=== PATIENT | female | born 1940 | race Caucasian/White ===

== ENCOUNTER 2017-11-09 09:09 | Observation (INO) | payer OTHER, MEDICARE ==
[~2017-11-09] VITALS: Ht 157.5 cm; Wt 103.8 kg
[2017-11-09 10:48] LABS: HEMATOCRIT 44.6 % (36.0-46.0); HEMOGLOBIN 14.5 G/DL (11.9-15.5); MCH 31.4 PG (29.0-34.0); MCHC 32.5 G/DL (30.0-36.0); MCV 96.5 FL (83-99); PLATELET COUNT 172 K/uL (156-360); RBC DIS.WIDTH-CV 12.4 % (11.8-14.6); RBC DIS.WIDTH-SD 43.7 % (39-53); RED BLOOD COUNT 4.62 M/uL (3.80-5.20); WHITE BLOOD COUNT 7.6 K/uL (4.1-10.2)
[2017-11-09 11:09] LABS: TROP-I INTERPRETATION NEGATIVE; TROPONIN-I 0.01 ng/mL (0.0-0.30)
[2017-11-09 11:25] LABS: CHLORIDE 103 mEq/L (99-109); D-DIMER ELISA < 150.00 ng/mLDDU (<230); POTASSIUM 4.9 mEq/L (3.7-5.4); SODIUM 142 mEq/L (136-147)
[2017-11-09 11:27] LABS: GLUCOSE 101 mg/dL (70-99)
[2017-11-09 11:31] LABS: CREATININE 0.8 mg/dL (0.6-1.3); GFR ESTIMATE (CALCULATED) > 59 mL/min/
[2017-11-09 11:32] LABS: UREA NITROGEN (BUN) 14 mg/dL (9-23)
[2017-11-09 13:47] LABS: TROP-I INTERPRETATION NEGATIVE; TROPONIN-I 0.01 ng/mL (0.0-0.30)
[2017-11-09 14:36] LABS: APPEARANCE CLEAR ((CLEAR)); BILIRUBIN NEGATIVE; BLOOD MODERATE; COLOR STRAW ((YELLOW)); GLUCOSE (STRIP) NEGATIVE; KETONES NEGATIVE; LEUKOCYTES NEGATIVE; NITRITE NEGATIVE; PROTEIN (STRIP) NEGATIVE; SPECIFIC GRAVITY 1.005 (1.000-1.030); UROBILINOGEN 0.2 MG/DL (0.2-1.0)
[2017-11-09 14:45] LABS: BACTERIA NONE SEEN /HPF; EPITHELIAL CELLS NONE SEEN /HPF; HYALINE CASTS 0-5 /LPF; MUCUS TRACE /LPF; UCUL ADDED? NO; WHITE BLOOD CELLS 0-5 /HPF (0-5)
[2017-11-09] MEDS ORDERED: LIPITOR80 MG PO (16:02)
[2017-11-09] MEDS ORDERED: WOMEN'S 50 PLU1 EACH PO (16:03)
[2017-11-09] MEDS ORDERED: LOPRESSOR25 MG PO (16:03)
[2017-11-09] MEDS ORDERED: TRAMADOL HCL50 MG PO (16:03)
[2017-11-09] MEDS ORDERED: VITAMIN D31000 UNIT PO (16:04)
[2017-11-09] MEDS ORDERED: CLARITIN,ALAVAR10 MG PO (16:05)
[2017-11-09] MEDS ORDERED: ADULT ASPIRIN R81 MG PO (16:05)
[2017-11-09 18:06] VITALS: BP 172/77
[2017-11-09 18:23] LABS: THYROTROPIN (TSH) 1.4 MIU/L (0.4-5.5)
[2017-11-09 18:25] LABS: MAGNESIUM 2.3 mg/dl (1.3-2.7)
[2017-11-09 18:31] LABS: PHOSPHORUS 3.5 mg/dL (2.5-4.9)
[2017-11-09 19:35] VITALS: BP 152/77
[2017-11-09 20:34] LABS: TROP-I INTERPRETATION NEGATIVE; TROPONIN-I 0.03 ng/mL (0.0-0.30)
[2017-11-10 00:22] VITALS: BP 127/60
[2017-11-10 03:53] VITALS: BP 122/58
[2017-11-10 05:41] LABS: BASOPHIL (%) 0.3 % (0-1); EOSINOPHIL (%) 1.3 % (0-5); EOSINOPHIL COUNT 0.1 K/uL (0-0.3); HEMATOCRIT 44.3 % (36.0-46.0); HEMOGLOBIN 14.2 G/DL (11.9-15.5); IMMATURE GRANULOCYTE (%) 0.2 % (0.0-0.7); LYMPHOCYTE (%) 30.4 % (15-42); LYMPHOCYTE COUNT 1.8 K/uL (1.0-2.8); MCH 30.9 PG (29.0-34.0); MCHC 32.1 G/DL (30.0-36.0); MCV 96.3 FL (83-99); MONOCYTE (%) 7.1 % (3-12); MONOCYTE COUNT 0.4 K/uL (0-0.8); NEUTROPHIL (%) 60.7 % (45-76); NEUTROPHIL COUNT 3.7 K/uL (1.8-6.4); PLATELET COUNT 171 K/uL (156-360); RBC DIS.WIDTH-CV 12.4 % (11.8-14.6); RBC DIS.WIDTH-SD 44.4 % (39-53); WHITE BLOOD COUNT 6.1 K/uL (4.1-10.2)
[2017-11-10 06:01] LABS: CHLORIDE 105 MEQ/L (99-109); CREATININE 0.9 MG/DL (0.6-1.3); GFR ESTIMATE (CALCULATED) > 59 mL/min/; GLUCOSE 102 mg/dL (70-99); SODIUM 142 MEQ/L (136-147); UREA NITROGEN (BUN) 19 mg/dL (9-23)
[2017-11-10 07:36] VITALS: BP 119/76
[2017-11-10 07:38] VITALS: BP 146/73
[2017-11-10 12:17] VITALS: BP 149/67
[2017-11-10] MEDS ORDERED: LOPRESSOR50 MG PO (15:34)
[2017-11-10 15:41] VITALS: BP 169/77
== END 2017-11-10 18:07 | disposition home or self-care (01) ==
LOC: EME 09:09 → EDOF 16:38 → ENRESERV 16:40 → 4SOUTH 17:58
PROVIDERS: Emergency Medicine; Internal Medicine
DX: I49.9 Cardiac arrhythmia, unspecified (principal); I35.8 Other nonrheumatic aortic valve disorders; R60.0 Localized edema; I10 Essential (primary) hypertension; G89.29 Other chronic pain; I42.2 Other hypertrophic cardiomyopathy; Z98.890 Other specified postprocedural states; I47.2 Ventricular tachycardia; E78.5 Hyperlipidemia, unspecified; I69.018 Other symptoms and signs involving cognitive functions following nontraumatic subarachnoid hemorrhage; R26.89 Other abnormalities of gait and mobility; Z60.2 Problems related to living alone; Z87.891 Personal history of nicotine dependence; Z90.710 Acquired absence of both cervix and uterus; Z79.82 Long term (current) use of aspirin; Z88.2 Allergy status to sulfonamides; Z88.6 Allergy status to analgesic agent; Z88.8 Allergy status to other drugs, medicaments and biological substances; Z66 Do not resuscitate
CPT/HCPCS: 71046; 80048; 81003; 83735; 83880; 84100; 84443; 84484; 85025; 85027; 85379; 93005; 93970; 99281; 99285; G0378; J1650